=== PATIENT | female | born 1950 | race Caucasian/White ===

== ENCOUNTER 2017-08-07 08:56 | Day surgery (SDC) | payer OTHER ==
[2017-08-07] MEDS ORDERED: LIDOCAINE 100 MG SYRINGE (10:35)
[2017-08-07] MEDS ORDERED: PROPOFOL 60 ML (10:35)
== END 2017-08-07 14:07 | disposition home or self-care (01) ==
LOC: GIL 08:56
DX: D12.6 Benign neoplasm of colon, unspecified (principal); K64.8 Other hemorrhoids; E11.9 Type 2 diabetes mellitus without complications; I10 Essential (primary) hypertension; E78.5 Hyperlipidemia, unspecified; E66.9 Obesity, unspecified; Z68.34 Body mass index [BMI] 34.0-34.9, adult
CPT/HCPCS: 45380; 82962; 88305